=== PATIENT | female | born 1960 | race Caucasian/White ===

== ENCOUNTER 2021-08-02 09:58 | Outpatient (CLI) | payer OTHER, SELFPAY ==
--- NOTE | ~2021-08-02 | MM_ITS ---
EXAMINATION: MM screening paulino BI w jean marie HISTORY: Screening TECHNIQUE: Craniocaudal and mediolateral oblique 3-D tomosynthesis images were obtained and synthetic 2-D images were generated. CAD analysis was submitted and interpreted. COMPARISON: No prior mammogram is available for comparison at this institution. BREAST PARENCHYMAL COMPOSITION: There are scattered areas of fibroglandular density. FINDINGS: There is a focal benign-appearing right breast mass. There are benign left breast calcifica tions. There is no evidence of suspicious mass, calcification, or architectural distortion to suggest malignancy in either breast. There has been no suspicious interval change. IMPRESSION: 1. No mammographic evidence of malignancy. 2. Recommend routine screening mammography in one year. BI-RADS Category 2: Benign finding(s). Reviewed, dictated and finalized at location A.
== END 2021-08-02 09:59 | disposition home or self-care (01) ==
LOC: ANHIMG 10:00
PROVIDERS: PCP Family Medicine; Visit Provider Family Medicine
DX: Z12.31 Encounter for screening mammogram for malignant neoplasm of breast (principal)
CPT/HCPCS: 77063; 77067

== ENCOUNTER 2023-06-16 16:48 | Emergency (ER) | payer OTHER, SELFPAY ==
--- NOTE | ~2023-06-16 | XR_ITS ---
EXAM: XR finger 3rd RT min 2V DATE: 06/16/2023 17:04 HISTORY: trauma taday jammed finger/pain all of finger . COMPARISON: None available. FINDINGS: Normal mineralization. Nondisplaced oblique fracture of the proximal and anterior aspect o f the third middle phalange. No lytic or blastic lesion. Scattered mild degenerative changes. No eros ion or periosteal change. Soft tissues within normal limits. IMPRESSION: Nondisplaced volar plate avulsion at the proximal right third middle phalange. Reviewed, dictated and finalized at location K. IMPRESSION: Nondisplaced volar plate avulsion at the proximal right third middl e phalange.
--- NOTE | 2023-06-16 16:51 | ED.UPPEXIN ---
HPI - Extremity Injury (Upper) General Chief Complaint: Extremity Injury, Upper Stated Complaint: Middle Finger Rt Hand Time Seen by Provider: 06/16/23 16:50 Source: patient Mode of arrival: ambulatory Limitations: no limitations History of Present Illness HPI narrative: Ms. Hanson is a 8-year-old female patient presenting to the clinic today with complaints of a middle finger injury to the right hand. She reports she jammed her right middle finger against a bedside table and she was making her bed this morning. Is having pain over the proximal distal phalanx. Notice mild swelling when compared to the left hand. Related Data Home Medications Medication Instructions Recorded Confirmed acyclovir 400 mg tablet 400 mg PO BID 03/20/21 06/16/23 bupropion HCl 450 mg 24 hr tablet, 450 mg PO DAILY 03/20/21 06/16/23 extended release Allergies Allergy/AdvReac Type Severity Reaction Status Date / Time sulfamethoxazole Allergy Severe THROAT Verified 06/16/23 16:51 SWELLING AND HIVES trimethoprim Allergy Severe THROAT Verified 06/16/23 16:51 SWELLING AND HIVES Review of Systems Review of Systems: Pertinent positives per HPI. Patient denies any fever, chills, rash, headache, visual changes, dizziness, cough, runny nose, sore throat, shortness of breath, chest pain, palpitations, nausea, vomiting, diarrhea, constipation, abdominal pain, or any urinary issues. PMFSH Past Medical History Medical History Eczema History of renal stone Family History Family History Daughter Diabetes mellitus Sibling Uterine cancer Social History Social History Smoking status: Former smoker Alcohol intake: current Substance use: never Comments At the time of my signature, I reviewed and agree with the nursing past medical, surgical, social, and family history. There is no relevant family history pertinent to the patient complaint. Exam Narrative: General: Well-developed, well nourished, in no apparent distress Head: Normocephalic, atraumatic. Cardio: Regular rate and rhythm, s1 and s2 normal, no murmur appreciated. Resp: Clear to auscultation bilaterally, no rhonchi, rales, wheezing or rubs. Musculoskeletal: No deformity,tender to palpation over the distal and proximal phalanx, pain with flexion and extension of the MIP joint, limited range of motion due to pain, muscle strength strong and equal, peripheral pulse strong, no cyanosis, normal gait and station Course Course Emergency Course: Portions of this record may have been created with voice recognition software. Level of Care: Express Care Visit Vital Signs Vital signs: Vital signs reviewed MDM - Extremity Injury (Upper) MDM Narrative Medical decision making narrative: At the time of the patient is resting comfortably on the exam table. X-ray of the right 3rd finger was complete and is negative for any sign of fracture malalignment. So I suspect patient finger sprain. Supportive measures were discussed with the patient she voiced understanding discharge instructions agrees to treatment plan. Will send patient home with a metal finger splint Differential Diagnosis Differential diagnosis: Likely finger sprain, dislocation of finger and other (Finger fracture) Imaging Data Radiologist's impression: [place] [address] XRay Report Signed Patient: Karina Giang : 1960 MR#: [id number] Age/Sex: 62 / F Acct:[id number] Loc: [facility]? ? ADM Date: 06/16/23Attending Dr: Ordering Physician: Alonso Albarado APRN Date of Service: 06/16/23 Procedure(s): XR finger 3rd RT min 2V Accession Number(s): [id number] cc: Alonso Albarado APRN; Trisha, Duyen Verde
[2023-06-16 16:55] VITALS: BP 149/70; PULSE 73; RESP 16; TEMP 36.6; O2SAT 100
== END 2023-06-16 17:24 | disposition home or self-care (01) ==
PROVIDERS: Emergency Provider Nurse Practitioner Family; PCP Family Medicine
DX: S62.652A Nondisplaced fracture of middle phalanx of right middle finger, initial encounter for closed fracture (principal); W22.8XXA Striking against or struck by other objects, initial encounter; Z87.891 Personal history of nicotine dependence
CPT/HCPCS: 29130; 73140; 99214; G0463

== ENCOUNTER 2023-09-04 05:44 | Emergency (ER) | payer OTHER, SELFPAY ==
[2023-09-04] VITALS (18 sets, daily range): BP systolic 101–146; BP diastolic 61–93; PULSE 62–79; RESP 12–20; TEMP 37.1; O2SAT 96–100
--- NOTE | ~2023-09-04 | XR_ITS ---
XR chest 1V portable DATE: 09/04/2023 11:01 INDICATION: Epigastric pain TECHNIQUE: Portable AP chest on 09/04/2023 at 1058 hours COMPARISON: 05/03/2012 PA chest FINDINGS: Normal heart size. No hilar or mediastinal enlargement. No pulmonary infiltrate or consolid ation, pleural effusion or pulmonary vascular congestion or pneumothorax is detected. Minimal thoracic dextroscoliosis. IMPRESSION: No active cardiopulmonary disease Reviewed, dictated and finalized at location B.
--- NOTE | 2023-09-04 06:07 | ECG_ITS ---
Measurements Intervals Swan Rate: 68 P: 29 TX: 137 QRS: 67 QRSD: 97 T: 67 QT: 426 QTc: 454 Interpretive Statements SINUS RHYTHM NORMAL ECG NO PREVIOUS ECG AVAILABLE FOR COMPARISON Electronically Signed On 09-05-2023 17:07:44 CDT by Jean Thorne M.D.
[2023-09-04 06:09] LABS: Basophils Percent Auto 0.3 % (0.2-1.2); Eosinophils Absolute Auto 0.2 K/mm3 (0-0.3); Eosinophils Percent Auto 3.2 % (0-4.4); Hematocrit 40.3 % (37.0-47.0); Hemoglobin 12.8 g/dL (12.0-15.0); Immature Granulocyte Absolute 0.01 K/mm3 (0.00-0.031); Immature Granulocyte Percent A 0.2 % (0-0.5); Lymphocytes Absolute Auto 2.44 K/mm3 (0.9-3.2); Lymphocytes Percent Auto 38.8 % (18.3-44.2); Mean Corpuscular HGB Conc 31.8 g/dl (32-36); Mean Corpuscular Hemoglobin 31.4 pg (26-34); Mean Corpuscular Volume 98.8 fl (80-100); Monocytes Absolute Auto 0.4 K/mm3 (0.1-0.6); Neutrophils Absolute Auto 3.2 K/mm3 (1.3-6.7); Neutrophils Percent Auto 50.5 % (45.5-73.1); Platelet Count Result 286 k/mm3 (150-375); Red Blood Count 4.08 M/mm3 (4.2-5.4); Red Cell Distribution Width 13.1 % (11.5-14.5); White Blood Count 6.3 K/mm3 (4.5-10.0)
[2023-09-04 06:26] LABS: Alanine Aminotransferase 27 U/L (6-35); Albumin Level 4.5 g/dL (3.5-5.1); Alkaline Phosphatase 61 U/L (38-126); Anion Gap 8 mmol/L (8-16); Aspartate Amino Transferase 34 U/L (14-36); Bilirubin,Total 0.5 mg/dL (0.2-1.3); Blood Urea Nitrogen 23 mg/dL (7-17); Calcium 9.1 mg/dL (8.4-10.2); Carbon Dioxide 28 mmol/L (22-30); Chloride 101 mmol/L (98-107); Estimated CRCL calculation 50 ml/min; Estimated Glomerular Filt Rate > 60; Glucose 103 mg/dL (65-110); Lipase 132 U/L (23-300); Sodium 137 mmol/L (137-145)
[2023-09-04 06:50] LABS: Appearance Urine Cloudy (Clear); Bacteria Urine None Seen /hpf; Bilirubin Urine Negative (Negative); Blood Urine Trace (Negative); Color Urine Yellow (Yellow); Glucose Urine UA Negative (Negative); Ketones Urine Negative (Negative); Leukocyte Esterase Ur 2+ LEU/UL (Negative); Need Manual Microscopic Reviewed; Nitrate Urine Negative (Negative); Non Pathogenic Casts 0-2; Protein Urine Negative (Negative); RBC Urine 0-2 /hpf (0-2); Specific Grav Ur 1.007 (1.001-1.035); Squamous Epithelial Cell Urine Few /hpf (Few); Urobilinogen Urine 0.2 mg/dL (<2.0)
[2023-09-04 06:52] LABS: Add Urine Microscopic? YES
--- NOTE | 2023-09-04 07:16 | ED.ABDPAIN ---
HPI - Abdominal Pain General Chief Complaint: Abdominal Pain Stated Complaint: abd pain Time Seen by Provider: 09/04/23 06:59 History of Present Illness HPI narrative: 63-year-old female presented emergency department for evaluation of intermittent epigastric pain that does radiate into her back. Patient states that the symptoms have been occurring at nighttime when she lays flat past few nights. Patient states that was her birthday weekend and she did indulge more than usual. Patient states she did have some alcohol and rich foods. Patient denies any prior history of coronary disease and has never had a stress test. Patient denies any pain with exercise. Patient also denies any prior history of gastritis. Upon arrival to the ED patient denies any current pain Related Data Home Medications Medication Instructions Recorded Confirmed acyclovir 400 mg tablet 400 mg PO BID 03/20/21 06/16/23 bupropion HCl 450 mg 24 hr tablet, 450 mg PO DAILY 03/20/21 06/16/23 extended release Allergies Allergy/AdvReac Type Severity Reaction Status Date / Time sulfamethoxazole Allergy Severe THROAT Verified 09/04/23 06:00 SWELLING AND HIVES trimethoprim Allergy Severe THROAT Verified 09/04/23 06:00 SWELLING AND HIVES Review of Systems Review of Systems: All systems reviewed & are unremarkable except as noted in HPI and below PMFSH Past Medical History Medical History Eczema History of renal stone Family History Family History Daughter Diabetes mellitus Sibling Uterine cancer Social History Social History Smoking status: Former smoker Alcohol intake: current Substance use: never Exam Narrative: APPEARANCE: Well appearing, no pain, no distress, well-nourished. HEAD: normocephalic, atraumatic. EYES: PERRLA/EOMI, conjunctivae clear. NOSE: Normal no drainage NECK: Supple. No adenopathy, no masses. RESPIRATORY: Airway patent, respirations nonlabored. Clear to auscultation bilaterally, no rales, rhonchi, wheezing. CARDIOVASCULAR: Regular rate and rhythm without murmurs rubs or gallops. ABDOMINAL: Soft, nontender, nondistended, normal bowel sounds MUSCULOSKELETAL: Moves all extremities. Strength/ROM intact, No edema, No calf tenderness. NEURO: Alert. Cranial nerves II through XII intact. Grossly intact SKIN: Warm, dry. Normal Color Course Course Emergency Course: 63-year-old female present to the emergency department for evaluation of epigastric pain. Patient states that the pain is currently resolved. Patient denies any current chest pain or shortness of breath. Patient has no reproducible epigastric pain to palpation. Patient is afebrile with no leukocytosis. Patient's T. bili AST ALT and alk phos are normal. Patient does have a troponin of 0.020. Repeat troponin is pending. Patient's delta troponin was negative. Patient continues to be pain-free. Low concern for ACS. Symptoms are more consistent with esophagitis/gastritis. Patient and family are updated the results of the work-up and recommended to have close follow-up with her primary care physician for additional outpatient cardiac testing but also follow-up with GI for upper endoscopy as needed. Patient was updated on the plan for symptom control at home. All questions and concerns were addressed. Vital Signs Vital signs: Vital Signs Temperature 98.8 F 09/04/23 05:48 Pulse Rate 79 09/04/23 05:48 Respiratory Rate 18 09/04/23 05:48 Blood Pressure 146/76 H 09/04/23 05:48 Pulse Oximetry 97 09/04/23 05:48 Oxygen Delivery Room Air 09/04/23 05:48 Temperature 98.8 F 09/04/23 05:48 Pulse Rate 67 09/04/23 11:15 Respiratory Rate 16 09/04/23 11:15 Blood Pressure 101/84 09/04/23 11:15 Pulse Oximetry 100 09/04/23 11:15
[2023-09-04] MEDS: PANTOPRAZOLE SODIUM IV 40 MG VIAL IV PUSH (09:57)
[2023-09-04 10:07] LABS: Troponin I < 0.012 ng/mL (0.000-0.034)
== END 2023-09-04 11:17 | disposition home or self-care (01) ==
PROVIDERS: Student in an Organized Health Care Education/Training Program; Emergency Provider Emergency Medicine; PCP Family Medicine
DX: R10.13 Epigastric pain (principal); Z87.891 Personal history of nicotine dependence
CPT/HCPCS: 36415; 71045; 80053; 81001; 83690; 84484; 85025; 87086; 87088; 87147; 93005; 96374; 99284; C9113

== ENCOUNTER 2023-10-09 16:53 | Emergency (ER) | payer OTHER, SELFPAY ==
--- NOTE | ~2023-10-09 | CT_ITS ---
EXAMINATION: CT abdomen pelvis w con DATE: 10/09/2023 20:59 INDICATION: right flank pain TECHNIQUE: Computed tomography (CT) of the abdomen and pelvis was performed with 100 mL Omnipaque-350 intravenous contrast. Automated exposure control and iterative reconstruction technique were employe d. The dose-length product was 383.06 mGy-cm. COMPARISON: None. FINDINGS: Lower thorax: Unremarkable Liver: Normal. Biliary/Gallbladder: Gallbladder is normal. No bile duct dilation. Pancreas: No mass or duct dilation. Spleen: Normal. Adrenals:No mass. Kidneys: Very mild right caliectasis. Mild urothelial enhancement in the right renal pelvis. No signi ficant hydronephrosis. No obstructing calcification. No suspicious mass. GI tract: No small or large bowel dilation. Normal appendix. Diverticulosis without diverticulitis. Mesentery/Peritoneum: No ascites, mass, or free air. Retroperitoneum: No mass. Pelvis: Pelvic organs are within normal limits. Soft Tissues: Soft tissues and body wall unremarkable. Bones: Subacute appearing right posterior 12th rib fracture. Nondisplaced, likely subacute right tra nsverse process fractures at L2-L4. IMPRESSION: Mild right caliectasis and renal pelvis urothelial enhancement, may represent ascending infection/rig ht pyelitis and the appropriate clinical context. Likely subacute right posterior 12th rib fracture and fractures of the right L2-L4 transverse process es. Reviewed, dictated and finalized at location K. [employer]AF[employer] ASSOCIATE IMPRESSION: Mild right caliectasis and renal pelvis urothelial enhancement, may represent a scending infection/right pyelitis and the appropriate clinical context. Likely subacute right posterior 12th rib fracture and fractures of the right L2 -L4 transverse processes.
[2023-10-09 17:30] VITALS: BP 123/61; PULSE 69; RESP 18; TEMP 36.8; O2SAT 97
--- NOTE | 2023-10-09 19:18 | ED.BACK ---
HPI - Back Pain/Injury General Chief Complaint: Back Pain/Injury Stated Complaint: right rib pain Time Seen by Provider: 10/09/23 19:09 Source: patient Mode of arrival: ambulatory Limitations: no limitations History of Present Illness HPI Narrative: This is a 63 year old female that presents to the ER for right sided flank pain. Reports the pain has been constant since this morning. No known alleviating or exacerbating factors. She put a Lidocaine patch on the area today. She has history of kidney stones. Pain feels similar. Also reports recent fall with right sided rib fracture, unsure which rib. No new injuries or trauma. Reports she has had cold symptoms today as well. Reports congestion, cough, chills. Denies fever, dysuria, hematuria, vomiting or diarrhea. Related Data Home Medications Medication Instructions Recorded Confirmed acyclovir 400 mg tablet 400 mg PO BID 03/20/21 06/16/23 bupropion HCl 450 mg 24 hr tablet, 450 mg PO DAILY 03/20/21 06/16/23 extended release Allergies Allergy/AdvReac Type Severity Reaction Status Date / Time sulfamethoxazole Allergy Severe THROAT Verified 09/04/23 06:00 SWELLING AND HIVES trimethoprim Allergy Severe THROAT Verified 09/04/23 06:00 SWELLING AND HIVES Review of Systems Review of Systems: CONSTITUTIONAL: Denies fever, ENT: Reports rhinorrhea, congestion, sore throat RESPIRATORY: Denies cough GASTROINTESTINAL: Denies abdominal pain, nausea, vomiting, or diarrhea. GENITOURINARY: Denies dysuria or hematuria. SKIN: Denies rash MUSCULOSKELETAL: Reports back pain, joint pain, and myalgia. NEUROLOGIC: Denies numbness, or weakness. All systems reviewed & are unremarkable except as noted in HPI and below PMFSH Past Medical History Medical History Eczema History of renal stone Family History Family History Daughter Diabetes mellitus Sibling Uterine cancer Social History Social History Smoking status: Former smoker Alcohol intake: current Substance use: never Exam Narrative: GENERAL: Well-appearing, well-nourished, and in no acute distress. HEAD: Normocephalic, atraumatic. EYES: PERRLA and EOMI. ENT: Nares clear, no rhinorrhea or epistaxis. Mucous membranes moist. Oropharynx without tonsillar hypertrophy exudate or other lesions. Bilateral TMs pearly josé non-bulging NECK: Supple. No adenopathy or masses. CHEST: Clear to auscultation. No respiratory distress. No wheezes rales or rhonchi HEART: Regular rate and rhythm. No murmur heard. Normal peripheral pulses. ABDOMEN: Soft, nontender, nondistended, normal active bowel sounds. Tender to palpation of the right posterior/lateral lower ribs EXTREMITIES: Normal range of motion. No edema. Normal gait SKIN: Warm, dry, no rash. NEURO: No focal deficits. Alert and oriented x3. PSYCH: Normal mood and affect Course Course Emergency Course: Patient and family updated on workup and agree with plan of care Vital Signs Vital signs: Vital Signs Temperature 98.2 F 10/09/23 17:30 Pulse Rate 69 10/09/23 17:30 Respiratory Rate 18 10/09/23 17:30 Blood Pressure 123/61 10/09/23 17:30 Pulse Oximetry 97 10/09/23 17:30 Oxygen Delivery Room Air 10/09/23 17:30 Temperature 98.2 F 10/09/23 17:30 Pulse Rate 69 10/09/23 17:30 Respiratory Rate 18 10/09/23 17:30 Blood Pressure 123/61 10/09/23 17:30 Pulse Oximetry 97 10/09/23 17:30 Oxygen Delivery Room Air 10/09/23 17:30 MDM - Back Pain/Injury MDM Narrative Medical decision making narrative: Patient presents to the emergency department for right side low back pain since this morning. Does report a fall several weeks ago for which she was diagnosed with a rib fracture, but had worsening back pain today which prompted her t
[2023-10-09] MEDS: ACETAMINOPHEN 500 MG TABLET 1000 MG PO (19:39)
[2023-10-09 19:47] LABS: Basophils Percent Auto 0.4 % (0.2-1.2); Eosinophils Absolute Auto 0.2 K/mm3 (0-0.3); Eosinophils Percent Auto 3.6 % (0-4.4); Hematocrit 38.6 % (37.0-47.0); Hemoglobin 12.3 g/dL (12.0-15.0); Immature Granulocyte Absolute 0.02 K/mm3 (0.00-0.031); Immature Granulocyte Percent A 0.4 % (0-0.5); Lymphocytes Absolute Auto 1.91 K/mm3 (0.9-3.2); Lymphocytes Percent Auto 34.3 % (18.3-44.2); Mean Corpuscular HGB Conc 31.9 g/dl (32-36); Mean Corpuscular Hemoglobin 31.5 pg (26-34); Mean Corpuscular Volume 98.7 fl (80-100); Mean Platelet Volume 8.6 fl (7.4-10.4); Monocytes Absolute Auto 0.5 K/mm3 (0.1-0.6); Monocytes Percent Auto 8.6 % (2.6-8.5); Neutrophils Absolute Auto 2.9 K/mm3 (1.3-6.7); Neutrophils Percent Auto 52.7 % (45.5-73.1); Platelet Count Result 350 k/mm3 (150-375); Red Blood Count 3.91 M/mm3 (4.2-5.4); Red Cell Distribution Width 13.1 % (11.5-14.5); White Blood Count 5.6 K/mm3 (4.5-10.0)
[2023-10-09 19:47] LABS: Bilirubin Urine Negative (Negative); Blood Urine Negative (Negative); Color Urine Yellow (Yellow); Glucose Urine UA Negative (Negative); Ketones Urine Negative (Negative); Leukocyte Esterase Ur Negative LEU/UL (Negative); Nitrate Urine Negative (Negative); Protein Urine Negative (Negative); Specific Grav Ur 1.005 (1.001-1.035); Urobilinogen Urine 0.2 mg/dL (<2.0)
[2023-10-09 19:48] LABS: Appearance Urine Clear (Clear)
[2023-10-09 19:49] LABS: Add Urine Microscopic? NO
[2023-10-09 19:56] LABS: Alanine Aminotransferase 71 U/L (6-35); Albumin Level 4.5 g/dL (3.5-5.1); Alkaline Phosphatase 104 U/L (38-126); Anion Gap 7 mmol/L (8-16); Aspartate Amino Transferase 37 U/L (14-36); Bilirubin,Total 0.3 mg/dL (0.2-1.3); Blood Urea Nitrogen 28 mg/dL (7-17); Calcium 9.4 mg/dL (8.4-10.2); Carbon Dioxide 30 mmol/L (22-30); Chloride 103 mmol/L (98-107); Estimated Glomerular Filt Rate > 60; Glucose 94 mg/dL (65-110); Potassium 4.3 mmol/L (3.4-5.0); Sodium 140 mmol/L (137-145)
[2023-10-09 20:22] LABS: Influenza A QL RT-PCR Negative (Negative); Influenza B QL RT-PCR Negative (Negative); RSV RNA, RT-PCR Negative (Negative); SARS-CoV-2 RNA PCR Negative (Negative)
[2023-10-09 20:33] LABS: Lipase 178 U/L (23-300)
== END 2023-10-09 21:54 | disposition home or self-care (01) ==
PROVIDERS: Emergency Provider Physician Assistant; PCP Family Medicine
DX: S32.028A Other fracture of second lumbar vertebra, initial encounter for closed fracture (principal); S32.038A Other fracture of third lumbar vertebra, initial encounter for closed fracture; S32.048A Other fracture of fourth lumbar vertebra, initial encounter for closed fracture; Z20.822 Contact with and (suspected) exposure to COVID-19; Z87.442 Personal history of urinary calculi; Z87.891 Personal history of nicotine dependence; W19.XXXA Unspecified fall, initial encounter
CPT/HCPCS: 36415; 74177; 80053; 81003; 83690; 85025; 87637; 99284; A9270; Q9967

== ENCOUNTER 2024-01-31 14:00 | Emergency (ER) | payer OTHER, SELFPAY ==
--- NOTE | ~2024-01-31 | XR_ITS ---
EXAMINATION: XR toe 3rd LT min 2V DATE: 01/31/2024 14:32 INDICATION: Left foot third digit injury and pain. TECHNIQUE: 3 views of left foot third digit were obtained. COMPARISON: None. FINDINGS: There is an avulsion fracture of dorsal base of third distal phalanx. There is mild osteoar thritis of third distal interphalangeal joint. IMPRESSION: 1. Avulsion fracture of dorsal base of third distal phalanx. Reviewed, dictated and finalized at location A.
[2024-01-31 14:11] VITALS: BP 137/65; PULSE 83; RESP 18; TEMP 36.2; O2SAT 99
--- NOTE | 2024-01-31 14:44 | ED.LOWEXIN ---
HPI - Extremity Injury (Lower) General Chief Complaint: Extremity Injury, Lower Stated Complaint: Left foot injury Time Seen by Provider: 01/31/24 14:44 Source: patient and RN notes reviewed Mode of arrival: ambulatory Limitations: no limitations History of Present Illness HPI Narrative: 63-year-old female presents concern for injury to the 3rd digit of the left foot. Reports she jammed the foot yesterday. She reports bruising, pain with walking. MD complaint: foot injury Related Data Home Medications Medication Instructions Recorded Confirmed acyclovir 400 mg tablet 400 mg PO BID 03/20/21 01/31/24 bupropion HCl 450 mg 24 hr tablet, 450 mg PO DAILY 03/20/21 01/31/24 extended release Allergies Allergy/AdvReac Type Severity Reaction Status Date / Time sulfamethoxazole Allergy Severe THROAT Verified 01/31/24 14:28 SWELLING AND HIVES trimethoprim Allergy Severe THROAT Verified 01/31/24 14:28 SWELLING AND HIVES Review of Systems Review of Systems: CONSTITUTIONAL: Denies malaise, chills, sweats, or fever. SKIN: Denies rash or itching, open skin, laceration, abrasion, redness, warmth MUSCULOSKELETAL: Reports pain, bruising, swelling in the 3rd digit of the left foot NEUROLOGIC: Denies numbness, weakness All systems reviewed & are unremarkable except as noted in HPI and below PMFSH Past Medical History Medical History Eczema History of renal stone Family History Family History Daughter Diabetes mellitus Sibling Uterine cancer Social History Social History Smoking status: Former smoker Alcohol intake: current Substance use: never Comments At time of signature, agree with nursing past medical, surgical, social and family history. There is no relevant family history pertinent to the presenting complaint Exam Narrative: GENERAL: Well-appearing, well-nourished, and in no acute distress. HEAD: Normocephalic, atraumatic. EYES: PERRLA, conjunctivae clear NECK: Supple. CHEST: Speaks in full sentences. No respiratory distress. HEART: Regular rate and rhythm. Normal and equal peripheral pulses. EXTREMITIES: 3rd digit of the left foot has has grossly no sensation, limited range of motion likely due to swelling. Mild edema, moderate ecchymosis. Normal sensation with sensitivity to light touch and pain. General digit tenderness. No open wounds, no skin tenting, no devitalized tissue or atrophy, no trophic changes, no obvious deformity, alignment normal, nearby joints and structures intact. Distal pulses palpable and equal bilaterally, skin warm, dry, pink. Capillary refill less than 3 seconds. SKIN: Warm, dry, no rash. NEURO: Alert and oriented x3. PSYCH: Normal mood and affect Course Course Emergency Course: Patient is aware of diagnosis, understands and agrees to treatment plan. Anticipatory guidance given. Patient agrees to follow-up as directed and is aware of reasons to seek care at the emergency department. Portions of this record may have been created with voice recognition software Level of Care: Express Care Visit Vital Signs Vital signs: Vital Signs Temperature 97.1 F L 01/31/24 14:11 Pulse Rate 83 01/31/24 14:11 Respiratory Rate 18 01/31/24 14:11 Blood Pressure 137/65 01/31/24 14:11 Pulse Oximetry 99 01/31/24 14:11 Oxygen Delivery Room Air 01/31/24 14:11 Temperature 97.1 F L 01/31/24 14:11 Pulse Rate 83 01/31/24 14:11 Respiratory Rate 18 01/31/24 14:11 Blood Pressure 137/65 01/31/24 14:11 Pulse Oximetry 99 01/31/24 14:11 Oxygen Delivery Room Air 01/31/24 14:11 Reviewed. MDM - Extremity Injury (Lower) MDM Narrative Medical decision making narrative: Patients injury and pain is consistent with musculoskeletal etiology. No signs o
== END 2024-01-31 15:00 | disposition home or self-care (01) ==
PROVIDERS: Emergency Provider Nurse Practitioner; PCP Family Medicine
DX: S92.902A Unspecified fracture of left foot, initial encounter for closed fracture (principal); Z79.899 Other long term (current) drug therapy; Z87.891 Personal history of nicotine dependence; W23.0XXA Caught, crushed, jammed, or pinched between moving objects, initial encounter
CPT/HCPCS: 73660; 99214; G0463

== ENCOUNTER 2024-11-13 15:51 | Emergency (ER) | payer OTHER, SELFPAY ==
[2024-11-13 16:29] VITALS: BP 154/73; PULSE 81; RESP 16; TEMP 36.2; O2SAT 99
--- NOTE | 2024-11-13 17:04 | ED_ITS ---
HPI - URI/Sore Throat General Chief Complaint: Upper Respiratory Infection Stated Complaint: congestion Time Seen by Provider: 11/13/24 17:05 Source: patient, RN notes reviewed and old records reviewed Mode of arrival: ambulatory Limitations: no limitations History of Present Illness HPI Narrative: 64-year-old female presents to the [facility] with 2 day history of nasal drainage, sore throat, congestion, postnasal drainage, body aches and fatigue. Symptoms started Satya night almost 2 days. Patient reports that she has taken Claritin and ibuprofen. No other treatment prior to arrival. Related Data Home Medications ?Medication ?Instructions ?Recorded ?Confirmed ?Last Taken ?Type acyclovir 400 mg tablet 400 mg PO BID 03/20/21 01/31/24 Unknown History bupropion HCl 450 mg 24 hr tablet, 450 mg PO DAILY 03/20/21 01/31/24 Unknown History extended release Allergies Allergy/AdvReac Type Severity Reaction Status Date / Time sulfamethoxazole Allergy Severe THROAT Verified 11/13/24 17:00 SWELLING AND HIVES trimethoprim Allergy Severe THROAT Verified 11/13/24 17:00 SWELLING AND HIVES Review of Systems Review of Systems: All systems reviewed & are unremarkable except as noted in HPI and below Constitutional: Constitutional: Reports as per HPI and Reports body ache(s) ENT: Reports as per HPI Cardiovascular: Cardiovascular: Reports no additional cardiovascular complaints, Denies chest pain and Denies dyspnea Respiratory: Respiratory: Reports no additional respiratory complaints, Denies chest congestion, Denies cough and Denies dyspnea Musculoskeletal: Musculoskeletal: Reports no additional musculoskeletal complaints Integumentary/Breasts: Skin/Breast: Reports system reviewed and no additional complaints, except as docu PMFSH Past Medical History Medical History Eczema History of renal stone Family History Family History Daughter Diabetes mellitus Sibling Uterine cancer Social History Social History Smoking status: Former smoker Alcohol intake: current Substance use: never Comments At the time of my signature, I reviewed and agree with the nursing past medical, surgical, social, and family history. There is no relevant family history pertinent to the patient complaint. Exam Const: General: cooperative, healthy appearing, comfortable, no acute distress, well developed, alert and well nourished Nutritional Appearance: well nourished Orientation/consciousness: patient oriented x3 Limitations: no limitations HENMT: Head: normal to inspection Ears: hearing grossly normal bilaterally, external ears normal, TM's normal bilaterally, EAC's normal, mastoids normal and no periauricular adenopathy Face/Nose/Sinus: normal facial exam and face symmetric Face and sinus: normal facial exam and face symmetric Mouth: Yes Normal oral and palatal mucosa present, Yes lip normal, Yes tongue normal and Yes moist mucous membranes Throat: posterior oropharynx normal, uvula midline, postnasal drainage and no uvular edema Eyes: General: appearance normal, both eyes and all related structures Neck: Neck: normal visual inspection, full ROM, no lymphadenopathy and no meningeal signs Chest: Chest palpation & inspection: normal inspection of the chest Resp: Effort & Inspection: normal respiratory effort and able to speak in complete sentences Auscultation: clear to auscultation bilaterally, no crackl es, no rales, no rhonchi and no wheezes Cardio: Rate: regular rate Skin: General skin exam: normal color and no rashes or lesions noted Neuro: General: patient oriented x3, gait normal, moves all extremities and no meningeal signs Cognition (Neuro): normal cognition Speech: normal speech Gait exam (Neuro): Normal gait present Extrem: General: normal to inspection, full ROM, capillary refill normal and normal gait Psych: Appearance: grossly normal and well kempt Mental Status: mental status grossly normal Speech and movement: Normal speech and movement present and Clear speech present Affect: normal affect Attitude: cooperative Course Course Level of Care: Express Care Visit Vital Signs Vital signs: Vital Signs Temperature 97.1 F L 11/13/24 16:29 Pulse Rate 81 11/13/24 16:29 Respiratory Rate 16 11/13/24 16:29 Blood Pressure 154/73 H 11/13/24 16:29 Pulse Oximetry 99 11/13/24 16:29 Oxygen Delivery Room Air 11/13/24 16:29 Temperature 97.1 F L 11/13/24 16:29 Pulse Rate 81 11/13/24 16:29 Respiratory Rate 16 11/13/24 16:29 Blood Pressure 154/73 H 11/13/24 16:29 Pulse Oximetry 99 11/13/24 16:29 Oxygen Delivery Room Air 11/13/24 16:29 Reviewed MDM - URI/Sore Throat MDM Narrative Medical decision making narrative: Patient sitting comfortably in exam room. Nontoxic, vitals stable. Patient in no acute distress. Patient presents with 2 day history of upper respiratory vir us. Patient is flu, COVID, strep negative. Patient appropriate for outpatient treatment with viral URI. Discharge instructions reviewed with patient, as well as provided in writing per nursing staff. The instructions also include specific and strict return/GO TO THE ER as well as f/u information. All questions have been answered, and the patient deny any further questions with discharge and discharge plan. Some parts of this dictation were generated by voice recognition software and may contain typographical and/or grammatical inaccuracies. Differential Diagnosis Differential diagnosis: Likely upper respiratory infection, otitis media, sinusitis, viral infection, bronchitis, influenza and pharyngitis Lab Data Labs: Lab Results 11/13/24 11/13/24 Range/Units 17:08 17:17 POC Influenza A Ag Negative (Negative) POC Influenza B Ag Negative (Negative) POC SARS CoV-2 Ag Negative (Negative) POC Grp A Strep Screen Negative (Negative) Reviewed Critical Care Time Critical Care Time Critical Care Time: No Discharge Plan Discharge Clinical Impression: PND (post-nasal drip) Upper respiratory infection Qualifiers: URI type: unspecified viral URI Qualified Code(s): J06.9 - Acute upper respiratory infection, unspecified Patient Disposition: Home, Self-Care Condition: Stable Instructions: Antibiotic Form, Upper Respiratory Infection (DC), Postnasal Drip (DC) Additional Instructions: Your rapid strep swab was negative today at [facility]. A throat culture will be sent to the laboratory for further testing. If the test is positive, you will receive a phone call within 48 hours and an appropriate antibiotic will be initiated at that time. Your rapid COVID test were negative Your rapid flu test was negative Your symptoms are likely due to a viral illness, which is not treated with antibiotics. Typically viral infections last 7-10 days, can linger for couple of weeks. It is very important to treat your symptoms. Drink plenty of water, Gatorade, Pedialyte, ice pops or Jell-O. -Alternate Tylenol and Motrin per package directions for fever or pain. You can alternate every 4 hours -Antihistamine medication such as Benadryl at night and Zyrtec/Claritin/Cristela during the day can help improve symptoms. -doing daily nasal irrigations can help relieve pressure your sinuses. Things like a Neti pot -Use Flonase twice a day for 5 days then daily to help reduce the inflammation and dry up your sinuses. -You can also use Mucinex. Be sure to drink plenty of water with this medication at least 8 ounces with every dose and it is important to drink 8 to 10 glasses of water per day. Water is a natural decongestant -Eat and drink things that are easy to swallow, like tea or soup, or popsicles. -Oral rinses such as: Salt water gargles and/or may use topical anesthetic (eg. Chloraseptic spray) or lozenges to relieve dryness or throat pain). -Frequent hand washing or hand leather tooler is one of the best ways to prevent spread of infection. -Using a vaporizer or humidifier at night will also help thin secretions and help with coughing up phlegm. -Follow up with primary care provider in 7-10 days if condition is not improving - For new or worsening symptoms go directly to the nearest ER Patient Language: Vincentian Prescriptions: No Action bupropion HCl 450 mg tablet extended release 24 hr 450 mg PO DAILY acyclovir 400 mg tablet 400 mg PO BID Follow-up/Referrals: UNKNOWN,DOCTOR [Primary Care Provider] - Stand Alone Forms: Work/School Release IP Time of Disposition: 17:17
[2024-11-13 17:10] LABS: EDSTREPNEGPOS1 Negative (Negative)
[2024-11-13 17:19] LABS: EDCOVIDSCREEN Negative (Negative); EDINFLUASCREEN Negative (Negative); EDINFLUBSCREEN Negative (Negative)
== END 2024-11-13 17:22 | disposition home or self-care (01) ==
PROVIDERS: Emergency Provider Nurse Practitioner
DX: R09.82 Postnasal drip (principal); J06.9 Acute upper respiratory infection, unspecified; Z20.822 Contact with and (suspected) exposure to COVID-19; Z87.891 Personal history of nicotine dependence
CPT/HCPCS: 87081; 87426; 87804; 87880; 99203; G0463